=== PATIENT | female | born 1960 | race Caucasian/White ===

== ENCOUNTER 2016-08-25 05:08 | Day surgery (SDC) | payer MEDICARE ==
[~2016-08-25 05:08] MED LIST: ATIVAN2 MG PO; FISH-EPA1000 MG PO; GRALISE600 MG PO; LIOR10 PO; LIQUID TEARS OPH; LORTAB10 PO; MOBIC15 MG PO; NEUR600 PO; NORCO1 TAB PO; PAIN TOP; PERCOCET 7.5/321 TAB PO; PRILOSEC10 MG PO; TEARS NATURA OPH; TUMSROLL PO; VITAMIN D31000 UNIT PO; WELLSR150 PO; WELLXL150 PO; WELLXL300 PO
== END 2016-08-25 23:59 | disposition home health service (06) ==
LOC: SDC 05:08
PROVIDERS: Orthopaedic Surgery
PROC: B01BZZZ Fluoroscopy of Spinal Cord (ICD-10-PCS; 2016-08-25)
PROC: 3E0R3BZ Introduction of Anesthetic Agent into Spinal Canal, Percutaneous Approach (ICD-10-PCS; principal; 2016-08-25 07:00)
DX: M54.16 Radiculopathy, lumbar region (principal); M19.90 Unspecified osteoarthritis, unspecified site; M85.80 Other specified disorders of bone density and structure, unspecified site; K21.9 Gastro-esophageal reflux disease without esophagitis; F32.9 Major depressive disorder, single episode, unspecified; Z86.010 Personal history of colon polyps; Z90.710 Acquired absence of both cervix and uterus; Z98.890 Other specified postprocedural states
CPT/HCPCS: J1040; J2250; J3010; Q9967